=== PATIENT | female | born 1970 | race Two or more races ===

== ENCOUNTER 2019-08-18 06:58 | Emergency (ER) | payer BC, OTHER ==
[~2019-08-18] VITALS: Ht 167.6 cm; Wt 107.9 kg
--- NOTE | 2019-08-18 07:25 | NUR ---
FIRST CONTACT WITH PT. PT C/O RLQ ABD PAIN STARTING LAST NIGHT @1900, THIS AM PAIN BEGAN RADIATING INTO BACK AND R ARM. EKG DONE. PT DENIES N/V/D/URINARY SX. PT'S AOX4. RESPS EVEN AND UNLABORED. BP/SPO2 MONITORS IN PLACE. CALL LIGHT WITHIN REACH. FAMILY AT BEDSIDE.
[2019-08-18] MEDS ORDERED: SODIUM CHLORIDE FLUSH 10ML SYR IVF ONE (07:30)
[2019-08-18] MEDS ORDERED: MORPHINE SULFATE 4 MG/ML, 1ML IVPush PRN (07:30)
[2019-08-18] MEDS ORDERED: ONDANSETRON 2MG/ML, 2ML IVPush ONE (07:30)
[2019-08-18] MEDS ORDERED: MORPHINE SULFATE 4 MG/ML, 1ML ONE (07:36)
[2019-08-18] MEDS ORDERED: ONDANSETRON 2MG/ML, 2ML ONE (07:36)
--- NOTE | 2019-08-18 07:38 | NUR ---
pt amb to br with steady gait. urine cup given.
--- NOTE | 2019-08-18 07:54 | NUR ---
PIV EST ON L AC WITH NO COMPLICATIONS. PT MEDICATED PER EMAR. PT TOLERATED WELL.
--- NOTE | 2019-08-18 07:54 | NUR ---
URINE COLLECTED AND UA SENT.
[2019-08-18 08:08] LABS: BASOPHILS # (AUTO) 0.03 x10^3/uL (0-0.1); BASOPHILS % (AUTO) 0 % (0-1); EOSINOPHILS # (AUTO) 0.14 x10^3/uL (0-0.4); EOSINOPHILS % (AUTO) 2 % (1-7); LYMPHOCYTES # (AUTO) 2.54 x10^3/uL (1-3.4); LYMPHOCYTES % (AUTO) 28 % (22-44); MD NO; MEAN CORPUSCULAR HEMOGLOBIN 30.6 pg (27.0-34.8); MEAN CORPUSCULAR HGB CONC 33.4 g/dL (32.4-35.8); MEAN CORPUSCULAR VOLUME 91.7 fL (80-100); MEAN PLATELET VOLUME 8.7 fL (7.4-10.4); MICROSCOPIC NOT IND; MONOCYTES # (AUTO) 0.43 x10^3/uL (0.2-0.8); MONOCYTES % (AUTO) 5 % (2-9); NEUTROPHILS # (AUTO) 5.95 x10^3/uL (1.8-6.8); NEUTROPHILS % (AUTO) 66 % (42-75); PLATELET COUNT 272 x10^3/uL (130-400); RED BLOOD COUNT 4.64 x10^6/uL (3.82-5.3); RED CELL DISTRIBUTION WIDTH 12.9 % (9.6-15.2)
[2019-08-18 08:20] LABS: ALANINE AMINOTRANSFERASE 119 U/L (12-78); ANION GAP 6 mmol/L (5-15); CALCIUM 8.6 mg/dL (8.5-10.1); CHLORIDE 108 mmol/L (98-107); CREATININE 0.59 mg/dL (0.55-1.02)
[2019-08-18 08:23] LABS: ALKALINE PHOSPHATASE 126 U/L (45-117); BILIRUBIN,TOTAL 0.4 mg/dL (0.2-1.0); TOTAL PROTEIN 8.1 g/dL (6.4-8.2)
--- NOTE | 2019-08-18 08:30 | NUR ---
pt's pain level is 3/10 at this time. pt resting in [facility]. pt's aox4. resps even and unlabored. bp/spo2 monitors in place.
--- NOTE | 2019-08-18 09:41 | NUR ---
PT RESTING IN [facility]. PT'S AOX4. RESPS EVEN AND UNLABORED. BP/SPO2 MONITORS IN PLACE. CALL LIGHT WITHIN REACH.
[2019-08-18 10:08] LABS: TROPONIN I < 0.015 ng/mL (0.000-0.045)
--- NOTE | 2019-08-18 10:53 | NUR ---
PT RESTING IN [facility]. PT'S AOX4. RESPS EVEN AND UNLABORED. BP/SPO2 MONITORS IN PLACE. CALL LIGHT WITHIN REACH.
[2019-08-18 10:55] VITALS: BP 109/61
--- NOTE | 2019-08-18 11:52 | NUR ---
Patient/patient's given discharge instructions and they have confirmed that they understand the instructions.
== END 2019-08-18 11:53 | disposition home or self-care (01) ==
LOC: ED 07:59
DX: R10.11 Right upper quadrant pain (principal); R07.9 Chest pain, unspecified; I51.7 Cardiomegaly
CPT/HCPCS: 36415; 71045; 76700; 80053; 80074; 81003; 83690; 84484; 85025; 93005; 96374; 96375; 99285; J2270; J2405